=== PATIENT | male | born 1940 | race Caucasian/White ===

== ENCOUNTER → 2017-02-05 | Outpatient (CLI) | payer MEDICARE | END | disposition home or self-care (01) | LOC: PCVCCLINIC 16:17 | PROVIDERS: ATTEND Internal Medicine Cardiovascular Disease | DX: I44.39 Other atrioventricular block (principal); I48.92 Unspecified atrial flutter; I10 Essential (primary) hypertension; I87.2 Venous insufficiency (chronic) (peripheral); I51.7 Cardiomegaly; I73.9 Peripheral vascular disease, unspecified; E78.00 Pure hypercholesterolemia, unspecified; G90.50 Complex regional pain syndrome I, unspecified; G62.9 Polyneuropathy, unspecified; I35.1 Nonrheumatic aortic (valve) insufficiency; Z87.891 Personal history of nicotine dependence; Z79.899 Other long term (current) drug therapy; Z88.1 Allergy status to other antibiotic agents; Z88.2 Allergy status to sulfonamides; Z95.820 Peripheral vascular angioplasty status with implants and grafts | CPT/HCPCS: 80061; 93005; G0463 ==

== ENCOUNTER → 2017-08-06 | Outpatient (CLI) | payer MEDICARE | END | disposition home or self-care (01) | LOC: PCVCCLINIC 15:19 | DX: I48.92 Unspecified atrial flutter (principal); I10 Essential (primary) hypertension; I51.7 Cardiomegaly; I87.2 Venous insufficiency (chronic) (peripheral); I73.9 Peripheral vascular disease, unspecified; R09.89 Other specified symptoms and signs involving the circulatory and respiratory systems; R94.31 Abnormal electrocardiogram [ECG] [EKG]; Z87.891 Personal history of nicotine dependence; Z79.899 Other long term (current) drug therapy | CPT/HCPCS: 80061; 93005; G0463 ==